=== PATIENT | male | born 1990 | race Caucasian/White ===

== ENCOUNTER 2022-04-15 17:24 | Emergency (ER) | payer MEDICAID ==
[~2022-04-15] VITALS: Ht 188 cm; Wt 172.7 kg
[2022-04-15] MEDS ORDERED: CITA10TA99 PO (17:36)
[2022-04-15] MEDS ORDERED: LURA20TA PO (17:36)
[2022-04-15] MEDS ORDERED: MUPI15CR12 TP ×3 (18:21→21:02)
[2022-04-15] MEDS ORDERED: DOXY-354 PO (18:21)
[2022-04-15 19:01] VITALS: BP 141/81
== END 2022-04-15 19:02 | disposition home or self-care (01) ==
LOC: EMS 17:32
DX: L60.0 Ingrowing nail (principal); L70.0 Acne vulgaris; F41.9 Anxiety disorder, unspecified; F32.A Depression, unspecified; F20.9 Schizophrenia, unspecified
CPT/HCPCS: 99283